=== PATIENT | male | born 1955 | race Caucasian/White ===

== ENCOUNTER 2017-12-07 11:15 | Emergency (ER) | payer MEDICARE, MEDICAID ==
[~2017-12-07] VITALS: Ht 160 cm; Wt 90.9 kg
[2017-12-07 11:54] LABS: GLUCOSE,POINT OF CARE 269 MG/DL (70-110)
[2017-12-07 13:19] VITALS: BP 131/84
== END 2017-12-07 13:34 | disposition home or self-care (01) ==
LOC: EMS 11:16
DX: E11.36 Type 2 diabetes mellitus with diabetic cataract (principal); F12.90 Cannabis use, unspecified, uncomplicated; F17.210 Nicotine dependence, cigarettes, uncomplicated; F15.90 Other stimulant use, unspecified, uncomplicated; E78.00 Pure hypercholesterolemia, unspecified; I10 Essential (primary) hypertension; H40.9 Unspecified glaucoma; Z72.89 Other problems related to lifestyle; Z94.7 Corneal transplant status
CPT/HCPCS: 99283

== ENCOUNTER 2017-12-08 07:13 | Inpatient (IN) | payer OTHER, MEDICAID ==
[~2017-12-08] VITALS: Ht 160 cm; Wt 90.5 kg
[2017-12-08 07:57] LABS: BASOPHILS % (AUTO) 0.2 % (0.0-2.0); EOSINOPHILS % (AUTO) 1.1 % (1.0-6.0); HEMATOCRIT 37.7 % (41-53); HEMOGLOBIN 12.8 g/dL (13.5-17.5); LYMPHOCYTES # (AUTO) 1.6 K/uL (1.0-4.8); LYMPHOCYTES % (AUTO) 16.3 % (22.0-44.0); MEAN CORPUSCULAR HEMOGLOBIN 32.2 pg (26.0-34.0); MEAN CORPUSCULAR HGB CONC 34.1 G/dL (31.0-37.0); MEAN CORPUSCULAR VOLUME 95 fL (80-100); MONOCYTES # (AUTO) 0.9 K/uL (0.1-1.0); NEUTROPHILS % (AUTO) 73.4 % (40.0-70.0); PLATELET COUNT (AUTO) 465 K/uL (150-450); RED BLOOD CELL COUNT(AUTO) 3.99 MIL/uL (4.50-5.90); RED CELL DISTRIBUTION WIDTH 13.8 % (11.5-14.5)
[2017-12-08 08:06] LABS: ANION GAP 9 mmol/L (8-16); CALCIUM, TOTAL 9.2 mg/dL (8.8-10.5); CARBON DIOXIDE 25 mmol/L (22-29); CHLORIDE 95 mmol/L (98-107); CREATININE 1.19 mg/dL (0.60-1.30); GLOMERULAR FILTR. RATE CALC > 60 mL/min (>60); GLUCOSE,RANDOM 217 mg/dL (70-110); POTASSIUM 3.7 mmol/L (3.5-5.1); SODIUM SERUM 129 mmol/L (136-145); UREA NITROGEN, BLOOD 16 mg/dL (7-18)
[2017-12-08 08:12] LABS: ALANINE AMINOTRANSFERASE 30 U/L (12-78); ALBUMIN 3.3 g/dL (3.4-5.0); ALKALINE PHOSPHATASE 108 U/L (46-116); ASPARTATE AMINOTRANSFERASE 25 U/L (15-37); BILIRUBIN,TOTAL 0.4 mg/dL (0.1-1.0); TOTAL PROTEIN, SERUM 7.9 g/dL (6.4-8.2)
[2017-12-08] MEDS ORDERED: ACETAMINOPHEN 325 MG TABLET PO PRN (09:45)
[2017-12-08] MEDS ORDERED: LORazepam 2 MG/ML VIAL IM ONE (09:45)
[2017-12-08] MEDS ORDERED: HALOPERIDOL LACTATE 5 MG/ML VIAL IM ONE (09:45)
[2017-12-08] MEDS ORDERED: IBUPROFEN 400 MG TABLET PO PRN (09:45)
[2017-12-08] MEDS ORDERED: DiphenhydrAMINE HCL 50 MG/ML VIAL IM ONE (09:45)
[2017-12-08 11:09] LABS: GLUCOSE,POINT OF CARE 197 MG/DL (70-110)
[2017-12-08] MEDS: LORazepam 2 MG TABLET PO PRN (20:44)
[2017-12-08] MEDS: ZOLPIDEM TARTRATE 10 MG TABLET PO PRN (20:44)
[2017-12-08] MEDS: HALOPERIDOL 5 MG TABLET PO PRN (20:44)
[2017-12-08 21:28] LABS: APPEARANCE,URINE CLOUDY (CLEAR); BILIRUBIN,URINE NEGATIVE (NEGATIVE); GLUCOSE, URINE (UA) 250 mg/dL (NEGATIVE); KETONES,URINE TRACE mg/dL (NEGATIVE); LEUKOCYTE ESTERASE ,URINE SMALL (NEGATIVE); NITRATE,URINE NEGATIVE (NEGATIVE); OCCULT BLOOD,URINE MODERATE (NEGATIVE); PH,URINE 5.5 (5.0-8.0); PROTEIN,URINE NEGATIVE (NEGATIVE); UROBILINOGEN,URINE 0.2 mg/dL (<=1.0)
[2017-12-08 21:32] LABS: AMPHET/METH SCREEN,URINE NEGATIVE (NEGATIVE); BARBITURATE SCREEN, URINE NEGATIVE (NEGATIVE); BENZODIAZEPINES SCREEN,URINE NEGATIVE (NEGATIVE); CANNABINOID SCREEN,URINE NEGATIVE (NEGATIVE); COCAINE SCREEN,URINE NEGATIVE (NEGATIVE); METHADONE SCREEN, URINE NEGATIVE (NEGATIVE); OPIATE SCREEN,URINE NEGATIVE (NEGATIVE)
[2017-12-08 21:40] LABS: PHENCYCLIDINE SCREEN,URINE NEGATIVE (NEGATIVE)
[2017-12-08 22:12] LABS: BACTERIA,URINE Few /HPF (None Seen); SQUAMOUS EPITHELIAL CELL,UR Few /LPF (None Seen)
[2017-12-09 05:03] VITALS: BP 124/86
[2017-12-09] MEDS ORDERED: PNEUMOCOCCAL VACCINE POLYVALENT 0.5 ML VIAL [PPSV23] IM ONE ×2 (05:15→14:00)
[2017-12-09 07:28] LABS: GLUCOMETER DEV NAME(LOC) BV3N5; GLUCOSE,POINT OF CARE 157 MG/DL (70-110)
[2017-12-09] MEDS ORDERED: ONDANSETRON HCL 4 MG TABLET PO PRN (08:00)
[2017-12-09] MEDS ORDERED: NICOTINE 14 MG/24 HOUR PATCH TD PRN (08:00)
[2017-12-09] MEDS ORDERED: ACETAMINOPHEN 325 MG TABLET PO PRN (08:00)
[2017-12-09] MEDS ORDERED: LOPERAMIDE HCL 2 MG CAPSULE PO PRN (08:00)
[2017-12-09] MEDS ORDERED: PETROLATUM,WHITE 71 GM JELLY TP PRN (08:00)
[2017-12-09] MEDS ORDERED: ALBUTEROL SULFATE HFA 90 MCG/PUFF 8 GM INHALER IH PRN (08:00)
[2017-12-09] MEDS ORDERED: DOCUSATE SODIUM 100 MG CAPSULE PO PRN (08:00)
[2017-12-09] MEDS ORDERED: MAGNESIUM HYDROXIDE SUSPENSION 30 ML UDCUP PO PRN (08:00)
[2017-12-09] MEDS ORDERED: GuaiFENesin/D-METHORPHAN [SUGAR-FREE] 200-20MG/10 ML SYRUP UDCUP PO PRN (08:00)
[2017-12-09] MEDS ORDERED: CloNIDine HCL 0.1 MG TABLET PO PRN (08:00)
[2017-12-09] MEDS ORDERED: MAG HYDROX/AL HYDROX/SIMETH ES 30 ML SUSPENSION UDCUP PO PRN (08:00)
[2017-12-09 08:01] VITALS: BP 117/77
[2017-12-09] MEDS ORDERED: GLUCAGON,HUMAN RECOMBINANT 1 MG VIAL IM PRN (08:30)
[2017-12-09 09:35] LABS: BASOPHILS % (AUTO) 2.2 % (0.0-2.0); EOSINOPHILS % (AUTO) 5.4 % (1.0-6.0); HEMOGLOBIN 14.5 g/dL (13.5-17.5); LYMPHOCYTES # (AUTO) 1.8 K/uL (1.0-4.8); LYMPHOCYTES % (AUTO) 27.7 % (22.0-44.0); MEAN CORPUSCULAR HEMOGLOBIN 32.2 pg (26.0-34.0); MEAN CORPUSCULAR HGB CONC 33.7 G/dL (31.0-37.0); MEAN CORPUSCULAR VOLUME 96 fL (80-100); MONOCYTES # (AUTO) 0.5 K/uL (0.1-1.0); MONOCYTES % (AUTO) 7.8 % (2.0-9.0); NEUTROPHILS # (AUTO) 3.7 K/uL (1.8-7.7); NEUTROPHILS % (AUTO) 56.9 % (40.0-70.0); PLATELET COUNT (AUTO) 487 K/uL (150-450); RED BLOOD CELL COUNT(AUTO) 4.49 MIL/uL (4.50-5.90); RED CELL DISTRIBUTION WIDTH 13.9 % (11.5-14.5)
[2017-12-09 09:43] LABS: HEMOGLOBIN A1C 10.1 % (4.5-6.2)
[2017-12-09 09:58] LABS: ALANINE AMINOTRANSFERASE 33 U/L (12-78); ALBUMIN 3.2 g/dL (3.4-5.0); ALKALINE PHOSPHATASE 114 U/L (46-116); ANION GAP 8 mmol/L (8-16); ASPARTATE AMINOTRANSFERASE 31 U/L (15-37); BILIRUBIN,TOTAL 0.5 mg/dL (0.1-1.0); CALCIUM, TOTAL 9.1 mg/dL (8.8-10.5); CARBON DIOXIDE 26 mmol/L (22-29); CHLORIDE 102 mmol/L (98-107); CHOL/HDL RATIO 4.1 (4.2-7.3); CHOLESTEROL 186 mg/dL (131-200); CREATININE 0.81 mg/dL (0.60-1.30); GLOMERULAR FILTR. RATE CALC > 60 mL/min (>60); GLUCOSE,RANDOM 137 mg/dL (70-110); HDL CHOLESTEROL 45 mg/dL (40-60); LDL CHOL (CALC.) 125 mg/dL (0-130); POTASSIUM 3.9 mmol/L (3.5-5.1); SODIUM SERUM 136 mmol/L (136-145); THYROID STIMULATING HORMONE 4.65 uIU/mL (0.36-3.74); TOTAL PROTEIN, SERUM 8.2 g/dL (6.4-8.2); TRIGLYCERIDES 82 mg/dL (15-150); UREA NITROGEN, BLOOD 11 mg/dL (7-18)
[2017-12-09] MEDS: INSULIN LISPRO 100 UNITS/ML SQ PRN ×3 (12:43→20:33)
[2017-12-09 13:13] LABS: GLUCOMETER DEV NAME(LOC) BV3N5; GLUCOSE,POINT OF CARE 164 MG/DL (70-110)
[2017-12-09 16:00] VITALS: BP 134/72
[2017-12-09 17:25] LABS: GLUCOMETER DEV NAME(LOC) BV3N5; GLUCOSE,POINT OF CARE 144 MG/DL (70-110)
[2017-12-09 20:49] LABS: GLUCOMETER DEV NAME(LOC) BV3N5; GLUCOSE,POINT OF CARE 161 MG/DL (70-110)
[2017-12-10] VITALS (8 sets, daily range): BP systolic 130–162; BP diastolic 75–97
[2017-12-10] MEDS: ZOLPIDEM TARTRATE 10 MG TABLET PO PRN (01:19)
[2017-12-10 06:54] LABS: GLUCOMETER DEV NAME(LOC) BV3N5; GLUCOSE,POINT OF CARE 174 MG/DL (70-110)
[2017-12-10] MEDS: INSULIN LISPRO 100 UNITS/ML SQ PRN ×4 (06:54→21:00)
[2017-12-10 08:16] LABS: BASOPHILS % (AUTO) 1.3 % (0.0-2.0); EOSINOPHILS % (AUTO) 5.5 % (1.0-6.0); HEMATOCRIT 39.2 % (41-53); HEMOGLOBIN 13.2 g/dL (13.5-17.5); LYMPHOCYTES # (AUTO) 1.9 K/uL (1.0-4.8); LYMPHOCYTES % (AUTO) 25.6 % (22.0-44.0); MEAN CORPUSCULAR HEMOGLOBIN 32.1 pg (26.0-34.0); MEAN CORPUSCULAR HGB CONC 33.6 G/dL (31.0-37.0); MEAN CORPUSCULAR VOLUME 96 fL (80-100); MONOCYTES # (AUTO) 0.7 K/uL (0.1-1.0); MONOCYTES % (AUTO) 9.8 % (2.0-9.0); NEUTROPHILS # (AUTO) 4.2 K/uL (1.8-7.7); NEUTROPHILS % (AUTO) 57.8 % (40.0-70.0); PLATELET COUNT (AUTO) 460 K/uL (150-450); RED BLOOD CELL COUNT(AUTO) 4.09 MIL/uL (4.50-5.90); RED CELL DISTRIBUTION WIDTH 13.7 % (11.5-14.5)
[2017-12-10 08:23] LABS: HEMOGLOBIN A1C 9.6 % (4.5-6.2)
[2017-12-10 08:43] LABS: ALANINE AMINOTRANSFERASE 28 U/L (12-78); ALBUMIN 2.9 g/dL (3.4-5.0); ALKALINE PHOSPHATASE 102 U/L (46-116); ANION GAP 12 mmol/L (8-16); ASPARTATE AMINOTRANSFERASE 23 U/L (15-37); BILIRUBIN,TOTAL 0.5 mg/dL (0.1-1.0); CARBON DIOXIDE 22 mmol/L (22-29); CHLORIDE 102 mmol/L (98-107); CHOL/HDL RATIO 4.4 (4.2-7.3); CHOLESTEROL 174 mg/dL (131-200); CREATININE 0.88 mg/dL (0.60-1.30); GLOMERULAR FILTR. RATE CALC > 60 mL/min (>60); GLUCOSE,RANDOM 173 mg/dL (70-110); HDL CHOLESTEROL 40 mg/dL (40-60); LDL CHOL (CALC.) 114 mg/dL (0-130); POTASSIUM 4.1 mmol/L (3.5-5.1); SODIUM SERUM 136 mmol/L (136-145); THYROID STIMULATING HORMONE 4.25 uIU/mL (0.36-3.74); TOTAL PROTEIN, SERUM 6.9 g/dL (6.4-8.2); TRIGLYCERIDES 98 mg/dL (15-150); UREA NITROGEN, BLOOD 11 mg/dL (7-18)
[2017-12-10 11:29] LABS: GLUCOMETER DEV NAME(LOC) BV3N5; GLUCOSE,POINT OF CARE 252 MG/DL (70-110)
[2017-12-10] MEDS ORDERED: ChlordiazePOXIDE HCL 25 MG CAPSULE PO PRN (13:00)
[2017-12-10] MEDS: LORazepam 2 MG TABLET PO PRN (16:34)
[2017-12-10] MEDS: MetFORMIN HCL 500 MG TABLET PO SCH (16:34)
[2017-12-10 16:39] LABS: GLUCOMETER DEV NAME(LOC) BV3N5; GLUCOSE,POINT OF CARE 176 MG/DL (70-110)
[2017-12-10 21:28] LABS: GLUCOMETER DEV NAME(LOC) BV3N5; GLUCOSE,POINT OF CARE 241 MG/DL (70-110)
[2017-12-11] MEDS: LORazepam 2 MG TABLET PO PRN ×2 (02:08→16:50)
[2017-12-11] MEDS: ZOLPIDEM TARTRATE 10 MG TABLET PO PRN ×2 (02:08→20:28)
[2017-12-11] MEDS: HALOPERIDOL 5 MG TABLET PO PRN (02:08)
[2017-12-11 02:16] VITALS: BP 139/87
[2017-12-11 06:13] LABS: GLUCOMETER DEV NAME(LOC) BV3N5; GLUCOSE,POINT OF CARE 186 MG/DL (70-110)
[2017-12-11] MEDS: MetFORMIN HCL 500 MG TABLET PO SCH ×2 (06:28→16:50)
[2017-12-11] MEDS: INSULIN LISPRO 100 UNITS/ML SQ PRN ×4 (06:30→20:29)
[2017-12-11] MEDS ORDERED: ChlordiazePOXIDE HCL 25 MG CAPSULE PO PRN (07:00)
[2017-12-11 08:47] VITALS: BP 139/82
[2017-12-11] MEDS: ChlordiazePOXIDE HCL 25 MG CAPSULE PO SCH ×4 (09:01→20:28)
[2017-12-11 09:02] LABS: ANION GAP 8 mmol/L (8-16); CALCIUM, TOTAL 8.6 mg/dL (8.8-10.5); CARBON DIOXIDE 25 mmol/L (22-29); CHLORIDE 102 mmol/L (98-107); CREATININE 0.83 mg/dL (0.60-1.30); FREE T4 (FREE THYROXINE) 0.95 ng/dL (0.76-1.46); GLOMERULAR FILTR. RATE CALC > 60 mL/min (>60); GLUCOSE,RANDOM 181 mg/dL (70-110); POTASSIUM 3.8 mmol/L (3.5-5.1); SODIUM SERUM 135 mmol/L (136-145); UREA NITROGEN, BLOOD 10 mg/dL (7-18)
[2017-12-11 12:06] VITALS: BP 135/85
[2017-12-11 12:13] LABS: GLUCOMETER DEV NAME(LOC) BV3N5; GLUCOSE,POINT OF CARE 226 MG/DL (70-110)
[2017-12-11] MEDS: RisperiDONE 0.5 MG TABLET PO SCH ×2 (12:13→17:26)
[2017-12-11 16:48] VITALS: BP 158/108
[2017-12-11 16:59] LABS: GLUCOMETER DEV NAME(LOC) BV3N5; GLUCOSE,POINT OF CARE 170 MG/DL (70-110)
[2017-12-11 17:33] VITALS: BP 141/85
[2017-12-11 20:54] LABS: GLUCOMETER DEV NAME(LOC) BV3N5; GLUCOSE,POINT OF CARE 257 MG/DL (70-110)
[2017-12-12 06:16] VITALS: BP 147/89
[2017-12-12 06:35] LABS: GLUCOMETER DEV NAME(LOC) BV3N5; GLUCOSE,POINT OF CARE 164 MG/DL (70-110)
[2017-12-12] MEDS: LEVOTHYROXINE SODIUM 75 MCG TABLET PO SCH (06:39)
[2017-12-12] MEDS: IBUPROFEN 400 MG TABLET PO PRN (06:39)
[2017-12-12] MEDS: MetFORMIN HCL 500 MG TABLET PO SCH ×2 (06:39→16:57)
[2017-12-12] MEDS: INSULIN LISPRO 100 UNITS/ML SQ PRN ×4 (06:44→20:54)
[2017-12-12 06:47] VITALS: BP 147/89
[2017-12-12 08:04] VITALS: BP 145/82
[2017-12-12] MEDS: ChlordiazePOXIDE HCL 25 MG CAPSULE PO SCH ×4 (08:49→20:50)
[2017-12-12] MEDS: RisperiDONE 0.5 MG TABLET PO SCH ×2 (08:49→16:58)
[2017-12-12] MEDS: HALOPERIDOL 5 MG TABLET PO PRN (08:49)
[2017-12-12] MEDS: LORazepam 2 MG TABLET PO PRN (08:49)
[2017-12-12 09:19] VITALS: BP 112/74
[2017-12-12 11:19] LABS: GLUCOMETER DEV NAME(LOC) BV3N5; GLUCOSE,POINT OF CARE 228 MG/DL (70-110)
[2017-12-12 16:04] VITALS: BP 140/89
[2017-12-12 17:19] LABS: GLUCOMETER DEV NAME(LOC) BV3N5; GLUCOSE,POINT OF CARE 143 MG/DL (70-110)
[2017-12-12 21:49] LABS: GLUCOMETER DEV NAME(LOC) BV3N5; GLUCOSE,POINT OF CARE 204 MG/DL (70-110)
[2017-12-13] MEDS: HALOPERIDOL 5 MG TABLET PO PRN ×2 (03:15→08:28)
[2017-12-13] MEDS: LORazepam 2 MG TABLET PO PRN ×2 (03:15→08:28)
[2017-12-13 06:28] LABS: GLUCOMETER DEV NAME(LOC) BV3N5; GLUCOSE,POINT OF CARE 180 MG/DL (70-110)
[2017-12-13 06:51] VITALS: BP 135/78
[2017-12-13] MEDS: LEVOTHYROXINE SODIUM 75 MCG TABLET PO SCH (06:56)
[2017-12-13] MEDS: MetFORMIN HCL 500 MG TABLET PO SCH ×2 (06:57→16:49)
[2017-12-13] MEDS ORDERED: ChlordiazePOXIDE HCL 10 MG CAPSULE PO PRN (07:00)
[2017-12-13] MEDS: INSULIN LISPRO 100 UNITS/ML SQ PRN ×4 (07:03→20:50)
[2017-12-13 08:00] VITALS: BP_SYST 131; BP_SYST 142; BP_DIAS 80; BP_DIAS 87
[2017-12-13 08:24] VITALS: BP 131/87
[2017-12-13] MEDS: RisperiDONE 0.5 MG TABLET PO SCH ×2 (08:27→16:49)
[2017-12-13] MEDS: ChlordiazePOXIDE HCL 10 MG CAPSULE PO SCH ×4 (08:27→20:49)
[2017-12-13 11:18] LABS: GLUCOMETER DEV NAME(LOC) BV3N5; GLUCOSE,POINT OF CARE 155 MG/DL (70-110)
[2017-12-13 16:00] VITALS: BP 155/89
[2017-12-13] MEDS: AmLODIPine BESYLATE 10 MG TABLET PO SCH (16:49)
[2017-12-13 17:19] LABS: GLUCOMETER DEV NAME(LOC) BV3N5; GLUCOSE,POINT OF CARE 236 MG/DL (70-110)
[2017-12-13 21:19] LABS: GLUCOMETER DEV NAME(LOC) BV3N5; GLUCOSE,POINT OF CARE 178 MG/DL (70-110)
[2017-12-14 06:25] VITALS: BP 142/93
[2017-12-14 06:29] LABS: GLUCOMETER DEV NAME(LOC) BV3N5; GLUCOSE,POINT OF CARE 177 MG/DL (70-110)
[2017-12-14] MEDS: LEVOTHYROXINE SODIUM 75 MCG TABLET PO SCH (06:29)
[2017-12-14] MEDS: MetFORMIN HCL 500 MG TABLET PO SCH ×2 (06:29→17:00)
[2017-12-14] MEDS: INSULIN LISPRO 100 UNITS/ML SQ PRN (06:38)
[2017-12-14] MEDS ORDERED: ChlordiazePOXIDE HCL 10 MG CAPSULE PO PRN (07:00)
[2017-12-14 08:00] VITALS: BP 117/78
[2017-12-14 08:02] VITALS: BP 117/78
[2017-12-14] MEDS: RisperiDONE 0.5 MG TABLET PO SCH ×2 (08:16→17:00)
[2017-12-14] MEDS: AmLODIPine BESYLATE 10 MG TABLET PO SCH (08:17)
[2017-12-14 11:44] LABS: GLUCOMETER DEV NAME(LOC) BV3N5; GLUCOSE,POINT OF CARE 140 MG/DL (70-110)
[2017-12-14 18:50] VITALS: BP 105/67
[2017-12-15 04:09] VITALS: BP 146/94
[2017-12-15 04:13] VITALS: BP 146/94
[2017-12-15] MEDS: IBUPROFEN 400 MG TABLET PO PRN (04:17)
[2017-12-15] MEDS: LORazepam 2 MG TABLET PO PRN (04:42)
[2017-12-15] MEDS: INSULIN LISPRO 100 UNITS/ML SQ PRN ×2 (06:22→11:41)
[2017-12-15] MEDS: LEVOTHYROXINE SODIUM 75 MCG TABLET PO SCH (06:43)
[2017-12-15] MEDS: MetFORMIN HCL 500 MG TABLET PO SCH ×2 (06:43→17:00)
[2017-12-15 08:01] VITALS: BP 132/79
[2017-12-15] MEDS: AmLODIPine BESYLATE 10 MG TABLET PO SCH (08:12)
[2017-12-15] MEDS: RisperiDONE 0.5 MG TABLET PO SCH ×2 (08:13→17:00)
[2017-12-15 08:46] LABS: BASOPHILS % (AUTO) 1.2 % (0.0-2.0); EOSINOPHILS % (AUTO) 9.2 % (1.0-6.0); HEMATOCRIT 40.8 % (41-53); HEMOGLOBIN 13.9 g/dL (13.5-17.5); LYMPHOCYTES # (AUTO) 2.3 K/uL (1.0-4.8); MEAN CORPUSCULAR HGB CONC 34.2 G/dL (31.0-37.0); MEAN CORPUSCULAR VOLUME 94 fL (80-100); MONOCYTES # (AUTO) 0.8 K/uL (0.1-1.0); MONOCYTES % (AUTO) 8.4 % (2.0-9.0); NEUTROPHILS # (AUTO) 5.5 K/uL (1.8-7.7); NEUTROPHILS % (AUTO) 57.2 % (40.0-70.0); PLATELET COUNT (AUTO) 486 K/uL (150-450); RED BLOOD CELL COUNT(AUTO) 4.35 MIL/uL (4.50-5.90); RED CELL DISTRIBUTION WIDTH 13.9 % (11.5-14.5)
[2017-12-15 08:54] LABS: AMPHET/METH SCREEN,URINE NEGATIVE (NEGATIVE); BARBITURATE SCREEN, URINE NEGATIVE (NEGATIVE); BENZODIAZEPINES SCREEN,URINE POSITIVE (NEGATIVE); CANNABINOID SCREEN,URINE NEGATIVE (NEGATIVE); COCAINE SCREEN,URINE NEGATIVE (NEGATIVE); METHADONE SCREEN, URINE NEGATIVE (NEGATIVE); OPIATE SCREEN,URINE NEGATIVE (NEGATIVE)
[2017-12-15] MEDS ORDERED: ASPIRIN 81 MG CHEWABLE TABLET PO SCH (09:00)
[2017-12-15 09:04] LABS: PHENCYCLIDINE SCREEN,URINE NEGATIVE (NEGATIVE)
[2017-12-15 09:31] LABS: APPEARANCE,URINE CLEAR (CLEAR); BILIRUBIN,URINE NEGATIVE (NEGATIVE); GLUCOSE, URINE (UA) 100 mg/dL (NEGATIVE); KETONES,URINE TRACE mg/dL (NEGATIVE); LEUKOCYTE ESTERASE ,URINE SMALL (NEGATIVE); NITRATE,URINE NEGATIVE (NEGATIVE); OCCULT BLOOD,URINE MODERATE (NEGATIVE); PH,URINE 6.5 (5.0-8.0); PROTEIN,URINE TRACE (NEGATIVE)
[2017-12-15 09:31] LABS: ALANINE AMINOTRANSFERASE 25 U/L (12-78); ALBUMIN 3.3 g/dL (3.4-5.0); ALKALINE PHOSPHATASE 118 U/L (46-116); ANION GAP 14 mmol/L (8-16); ASPARTATE AMINOTRANSFERASE 19 U/L (15-37); BILIRUBIN,TOTAL 0.3 mg/dL (0.1-1.0); CALCIUM, TOTAL 9.9 mg/dL (8.8-10.5); CARBON DIOXIDE 22 mmol/L (22-29); CHLORIDE 103 mmol/L (98-107); CREATININE 0.88 mg/dL (0.60-1.30); GLOMERULAR FILTR. RATE CALC > 60 mL/min (>60); GLUCOSE,RANDOM 187 mg/dL (70-110); POTASSIUM 4.4 mmol/L (3.5-5.1); SODIUM SERUM 139 mmol/L (136-145); UREA NITROGEN, BLOOD 14 mg/dL (7-18)
[2017-12-15 09:56] LABS: BACTERIA,URINE None Seen /HPF (None Seen); RBC,URINE 0-2 /HPF (0-2); SQUAMOUS EPITHELIAL CELL,UR Few /LPF (None Seen)
[2017-12-15] MEDS: CIPROFLOXACIN HCL 500 MG TABLET PO SCH ×2 (10:34→17:00)
[2017-12-15 11:44] LABS: GLUCOMETER DEV NAME(LOC) BV3N5; GLUCOSE,POINT OF CARE 159 MG/DL (70-110)
[2017-12-15 16:00] VITALS: BP 131/79
[2017-12-15 16:04] LABS: GLUCOSE,POINT OF CARE 228 MG/DL (70-110)
[2017-12-16] MEDS ORDERED: TAMSULOSIN HCL 0.4 MG CAPSULE PO SCH (09:00)
== END 2017-12-15 15:23 | disposition short-term general hospital (02) | DRG 885 ==
LOC: EMS 07:15 → B3A 12-09 00:40
PROVIDERS: ADMIT Psychiatry & Neurology Psychiatry; ATTEND Psychiatry & Neurology Psychiatry
DX: F20.9 Schizophrenia, unspecified (principal); E87.1 Hypo-osmolality and hyponatremia; I10 Essential (primary) hypertension; E11.65 Type 2 diabetes mellitus with hyperglycemia; E03.9 Hypothyroidism, unspecified; E78.5 Hyperlipidemia, unspecified; F17.200 Nicotine dependence, unspecified, uncomplicated; F10.10 Alcohol abuse, uncomplicated; E78.00 Pure hypercholesterolemia, unspecified; F15.90 Other stimulant use, unspecified, uncomplicated; H40.9 Unspecified glaucoma; H54.61 Unqualified visual loss, right eye, normal vision left eye; R45.87 Impulsiveness; Z28.21 Immunization not carried out because of patient refusal
CPT/HCPCS: 80307; 83036; 84439; 84443; 87086; 90471; 96372; 99285; G0480; J1200; J1630; J2060

== ENCOUNTER 2017-12-15 15:46 | Inpatient (IN) | payer MEDICARE, MEDICAID ==
[~2017-12-15] VITALS: Ht 160 cm; Wt 74.2 kg
[2017-12-15 16:31] LABS: BASOPHILS % (AUTO) 1.1 % (0.0-2.0); EOSINOPHILS % (AUTO) 7.4 % (1.0-6.0); HEMATOCRIT 43.9 % (41-53); HEMOGLOBIN 14.9 g/dL (13.5-17.5); LYMPHOCYTES # (AUTO) 1.8 K/uL (1.0-4.8); LYMPHOCYTES % (AUTO) 18.5 % (22.0-44.0); MEAN CORPUSCULAR HEMOGLOBIN 31.9 pg (26.0-34.0); MEAN CORPUSCULAR VOLUME 94 fL (80-100); MONOCYTES # (AUTO) 0.8 K/uL (0.1-1.0); MONOCYTES % (AUTO) 8.3 % (2.0-9.0); NEUTROPHILS # (AUTO) 6.2 K/uL (1.8-7.7); NEUTROPHILS % (AUTO) 64.7 % (40.0-70.0); PLATELET COUNT (AUTO) 501 K/uL (150-450); RED BLOOD CELL COUNT(AUTO) 4.68 MIL/uL (4.50-5.90); RED CELL DISTRIBUTION WIDTH 13.7 % (11.5-14.5)
[2017-12-15 16:44] LABS: INR 0.9 (0.9-1.1); PROTHROMBIN TIME 9.6 SEC (9.4-11.6)
[2017-12-15 16:49] LABS: ANION GAP 13 mmol/L (8-16); CALCIUM, TOTAL 10.3 mg/dL (8.8-10.5); CARBON DIOXIDE 25 mmol/L (22-29); CHLORIDE 100 mmol/L (98-107); CREATININE 1.06 mg/dL (0.60-1.30); GLOMERULAR FILTR. RATE CALC > 60 mL/min (>60); GLUCOSE,RANDOM 213 mg/dL (70-110); POTASSIUM 4.1 mmol/L (3.5-5.1); SODIUM SERUM 138 mmol/L (136-145); UREA NITROGEN, BLOOD 17 mg/dL (7-18)
[2017-12-15 16:52] LABS: ALANINE AMINOTRANSFERASE 24 U/L (12-78); ALBUMIN 3.5 g/dL (3.4-5.0); ALKALINE PHOSPHATASE 135 U/L (46-116); ASPARTATE AMINOTRANSFERASE 20 U/L (15-37); BILIRUBIN,TOTAL 0.2 mg/dL (0.1-1.0); CREATINE KINASE, TOTAL ONLY 46 U/L (39-308); TOTAL PROTEIN, SERUM 9.8 g/dL (6.4-8.2)
[2017-12-15 16:53] LABS: TROPONIN I < 0.02 ng/mL (0.00-0.05)
[2017-12-15 17:10] LABS: AMMONIA < 10 umol/L (11-32)
[2017-12-15 19:49] LABS: APPEARANCE,URINE CLEAR (CLEAR); BILIRUBIN,URINE NEGATIVE (NEGATIVE); GLUCOSE, URINE (UA) 100 mg/dL (NEGATIVE); KETONES,URINE TRACE mg/dL (NEGATIVE); LEUKOCYTE ESTERASE ,URINE TRACE (NEGATIVE); NITRATE,URINE NEGATIVE (NEGATIVE); OCCULT BLOOD,URINE TRACE (NEGATIVE); PH,URINE 5.5 (5.0-8.0); PROTEIN,URINE TRACE (NEGATIVE); UROBILINOGEN,URINE 0.2 mg/dL (<=1.0)
[2017-12-15 19:54] LABS: AMPHET/METH SCREEN,URINE NEGATIVE (NEGATIVE); BARBITURATE SCREEN, URINE NEGATIVE (NEGATIVE); BENZODIAZEPINES SCREEN,URINE POSITIVE (NEGATIVE); CANNABINOID SCREEN,URINE NEGATIVE (NEGATIVE); COCAINE SCREEN,URINE NEGATIVE (NEGATIVE); METHADONE SCREEN, URINE NEGATIVE (NEGATIVE); OPIATE SCREEN,URINE NEGATIVE (NEGATIVE); PHENCYCLIDINE SCREEN,URINE NEGATIVE (NEGATIVE)
[2017-12-15 20:43] LABS: RBC,URINE 0-2 /HPF (0-2)
[2017-12-15 20:44] LABS: BACTERIA,URINE Moderate /HPF (None Seen)
[2017-12-15 20:45] LABS: SQUAMOUS EPITHELIAL CELL,UR Moderate /LPF (None Seen)
[2017-12-16] VITALS (7 sets, daily range): BP systolic 118–149; BP diastolic 78–95
[2017-12-16] MEDS ORDERED: 0.9% SODIUM CHLORIDE 10 ML SYRINGE IVP PRN (00:15)
[2017-12-16] MEDS ORDERED: ACETAMINOPHEN 325 MG TABLET PO PRN ×2 (00:15→08:15)
[2017-12-16] MEDS ORDERED: SODIUM CHLORIDE 0.9% 1,000 ML IV ONE (00:15)
[2017-12-16 07:43] LABS: GLUCOMETER DEV NAME(LOC) PV 4E2; GLUCOSE,POINT OF CARE 163 MG/DL (70-110)
[2017-12-16] MEDS ORDERED: MAGNESIUM HYDROXIDE SUSPENSION 30 ML UDCUP PO PRN (08:15)
[2017-12-16] MEDS ORDERED: DEXTROSE 50%-WATER 25 GM/50 ML SYRINGE IVP PRN (08:15)
[2017-12-16] MEDS ORDERED: CefTRIAXone SODIUM 1 GM in DEXTROSE 5%-WATER 10 ML IV ONE (08:30)
[2017-12-16] MEDS: PANTOPRAZOLE SODIUM 40 MG DR TABLET PO SCH (09:59)
[2017-12-16] MEDS: DOCUSATE SODIUM 100 MG CAPSULE PO SCH ×2 (09:59→20:24)
[2017-12-16] MEDS: ASPIRIN 81 MG CHEWABLE TABLET PO SCH (09:59)
[2017-12-16] MEDS: MULTIVITAMINS WITH MINERALS, THERAPEUTIC TABLET PO SCH (09:59)
[2017-12-16] MEDS: LISINOPRIL 5 MG TABLET PO SCH (09:59)
[2017-12-16] MEDS: HEPARIN SODIUM,PORCINE 5,000 UNITS/ML VIAL SQ SCH ×2 (10:00→20:25)
[2017-12-16] MEDS: INSULIN LISPRO 100 UNITS/ML SQ PRN ×3 (12:38→20:32)
[2017-12-16 17:39] LABS: GLUCOMETER DEV NAME(LOC) PV 4E2; GLUCOSE,POINT OF CARE 172 MG/DL (70-110)
[2017-12-16] MEDS: ATORVASTATIN CALCIUM 20 MG TABLET PO SCH (20:24)
[2017-12-16] MEDS: RisperiDONE 0.5 MG TABLET PO SCH (20:24)
[2017-12-16 23:49] LABS: GLUCOMETER DEV NAME(LOC) 6N 1E; GLUCOSE,POINT OF CARE 155 MG/DL (70-110)
[2017-12-17 04:32] VITALS: BP 133/89
[2017-12-17] MEDS: INSULIN LISPRO 100 UNITS/ML SQ PRN ×3 (05:58→17:30)
[2017-12-17] MEDS: DOCUSATE SODIUM 100 MG CAPSULE PO SCH ×2 (08:40→20:33)
[2017-12-17] MEDS: ASPIRIN 81 MG CHEWABLE TABLET PO SCH (08:41)
[2017-12-17] MEDS: PANTOPRAZOLE SODIUM 40 MG DR TABLET PO SCH (08:41)
[2017-12-17] MEDS: MULTIVITAMINS WITH MINERALS, THERAPEUTIC TABLET PO SCH (08:41)
[2017-12-17] MEDS: HEPARIN SODIUM,PORCINE 5,000 UNITS/ML VIAL SQ SCH ×2 (08:41→20:33)
[2017-12-17] MEDS: LISINOPRIL 5 MG TABLET PO SCH (08:41)
[2017-12-17 09:52] LABS: GLUCOMETER DEV NAME(LOC) 6N 2D; GLUCOSE,POINT OF CARE 181 MG/DL (70-110)
[2017-12-17 12:28] LABS: GLUCOMETER DEV NAME(LOC) PV 4E2; GLUCOSE,POINT OF CARE 128 MG/DL (70-110)
[2017-12-17 14:25] VITALS: BP 120/78
[2017-12-17 15:54] VITALS: BP 124/76
[2017-12-17 20:06] VITALS: BP 117/76
[2017-12-17] MEDS: ATORVASTATIN CALCIUM 20 MG TABLET PO SCH (20:32)
[2017-12-17] MEDS: RisperiDONE 0.5 MG TABLET PO SCH (20:32)
[2017-12-17] MEDS: TAMSULOSIN HCL 0.4 MG CAPSULE PO SCH (20:33)
[2017-12-18 05:42] VITALS: BP 126/76
[2017-12-18 06:19] LABS: GLUCOMETER DEV NAME(LOC) 6N 1E; GLUCOSE,POINT OF CARE 135 MG/DL (70-110)
[2017-12-18 07:45] VITALS: BP 126/80
[2017-12-18] MEDS: DOCUSATE SODIUM 100 MG CAPSULE PO SCH ×2 (08:24→19:54)
[2017-12-18] MEDS: LISINOPRIL 5 MG TABLET PO SCH (08:24)
[2017-12-18] MEDS: PANTOPRAZOLE SODIUM 40 MG DR TABLET PO SCH (08:24)
[2017-12-18] MEDS: HEPARIN SODIUM,PORCINE 5,000 UNITS/ML VIAL SQ SCH ×2 (08:25→19:54)
[2017-12-18] MEDS: ASPIRIN 81 MG CHEWABLE TABLET PO SCH (08:25)
[2017-12-18] MEDS: TAMSULOSIN HCL 0.4 MG CAPSULE PO SCH (08:25)
[2017-12-18] MEDS: MULTIVITAMINS WITH MINERALS, THERAPEUTIC TABLET PO SCH (08:30)
[2017-12-18] MEDS: INSULIN LISPRO 100 UNITS/ML SQ PRN ×3 (11:06→20:11)
[2017-12-18 11:27] VITALS: BP 120/76
[2017-12-18 11:38] LABS: GLUCOMETER DEV NAME(LOC) 6N 1E; GLUCOSE,POINT OF CARE 231 MG/DL (70-110)
[2017-12-18 19:44] LABS: GLUCOMETER DEV NAME(LOC) 6N 1E; GLUCOSE,POINT OF CARE 195 MG/DL (70-110)
[2017-12-18] MEDS: ATORVASTATIN CALCIUM 20 MG TABLET PO SCH (19:54)
[2017-12-18] MEDS: RisperiDONE 0.5 MG TABLET PO SCH (19:54)
[2017-12-18 20:16] VITALS: BP 133/86
[2017-12-18 20:19] LABS: GLUCOMETER DEV NAME(LOC) 6N 1E; GLUCOSE,POINT OF CARE 160 MG/DL (70-110)
[2017-12-19 00:08] VITALS: BP 135/74
[2017-12-19 04:00] VITALS: BP 136/86
[2017-12-19] MEDS: INSULIN LISPRO 100 UNITS/ML SQ PRN ×4 (05:34→22:29)
[2017-12-19 06:19] LABS: GLUCOMETER DEV NAME(LOC) 6N 1E; GLUCOSE,POINT OF CARE 167 MG/DL (70-110)
[2017-12-19 08:03] VITALS: BP 151/84
[2017-12-19] MEDS: MULTIVITAMINS WITH MINERALS, THERAPEUTIC TABLET PO SCH (08:37)
[2017-12-19] MEDS: DOCUSATE SODIUM 100 MG CAPSULE PO SCH ×2 (08:37→20:59)
[2017-12-19] MEDS: LISINOPRIL 5 MG TABLET PO SCH (08:37)
[2017-12-19] MEDS: ASPIRIN 81 MG CHEWABLE TABLET PO SCH (08:37)
[2017-12-19] MEDS: TAMSULOSIN HCL 0.4 MG CAPSULE PO SCH ×2 (08:38→20:58)
[2017-12-19] MEDS: PANTOPRAZOLE SODIUM 40 MG DR TABLET PO SCH (08:38)
[2017-12-19] MEDS: HEPARIN SODIUM,PORCINE 5,000 UNITS/ML VIAL SQ SCH ×2 (08:38→20:59)
[2017-12-19 12:17] VITALS: BP 134/76
[2017-12-19 14:59] LABS: GLUCOMETER DEV NAME(LOC) 6N 2D; GLUCOSE,POINT OF CARE 207 MG/DL (70-110)
[2017-12-19 15:10] VITALS: BP 135/77
[2017-12-19 20:08] VITALS: BP 136/83
[2017-12-19 20:14] LABS: GLUCOMETER DEV NAME(LOC) 6N 2D; GLUCOSE,POINT OF CARE 199 MG/DL (70-110)
[2017-12-19] MEDS: ATORVASTATIN CALCIUM 20 MG TABLET PO SCH (20:58)
[2017-12-19] MEDS: RisperiDONE 0.5 MG TABLET PO SCH (20:59)
[2017-12-19 23:24] LABS: GLUCOMETER DEV NAME(LOC) 6N 1E; GLUCOSE,POINT OF CARE 196 MG/DL (70-110)
[2017-12-20] VITALS (7 sets, daily range): BP systolic 110–152; BP diastolic 58–110
[2017-12-20] MEDS: INSULIN LISPRO 100 UNITS/ML SQ PRN ×2 (05:45→12:52)
[2017-12-20 06:29] LABS: GLUCOMETER DEV NAME(LOC) 6N 1E; GLUCOSE,POINT OF CARE 162 MG/DL (70-110)
[2017-12-20] MEDS: TAMSULOSIN HCL 0.4 MG CAPSULE PO SCH ×3 (08:39→21:00)
[2017-12-20] MEDS: MULTIVITAMINS WITH MINERALS, THERAPEUTIC TABLET PO SCH (08:39)
[2017-12-20] MEDS: PANTOPRAZOLE SODIUM 40 MG DR TABLET PO SCH (08:39)
[2017-12-20] MEDS: DOCUSATE SODIUM 100 MG CAPSULE PO SCH ×3 (08:39→21:00)
[2017-12-20] MEDS: ASPIRIN 81 MG CHEWABLE TABLET PO SCH (08:40)
[2017-12-20] MEDS: HEPARIN SODIUM,PORCINE 5,000 UNITS/ML VIAL SQ SCH ×3 (08:40→21:00)
[2017-12-20] MEDS: LISINOPRIL 5 MG TABLET PO SCH (08:40)
[2017-12-20 15:19] LABS: GLUCOMETER DEV NAME(LOC) 6N 1E; GLUCOSE,POINT OF CARE 180 MG/DL (70-110)
[2017-12-20 15:19] LABS: GLUCOMETER DEV NAME(LOC) 6N 1E; GLUCOSE,POINT OF CARE 138 MG/DL (70-110)
[2017-12-20 15:19] LABS: GLUCOMETER DEV NAME(LOC) 6N 1E; GLUCOSE,POINT OF CARE 127 MG/DL (70-110)
[2017-12-20 17:54] LABS: GLUCOMETER DEV NAME(LOC) 6N 1E; GLUCOSE,POINT OF CARE 237 MG/DL (70-110)
[2017-12-20 20:09] LABS: GLUCOMETER DEV NAME(LOC) 6N 1E; GLUCOSE,POINT OF CARE 117 MG/DL (70-110)
[2017-12-20] MEDS: ATORVASTATIN CALCIUM 20 MG TABLET PO SCH (20:25)
[2017-12-20] MEDS ORDERED: SODIUM CHLORIDE 0.9% 1,000 ML IV ONE (21:00)
[2017-12-20] MEDS: RisperiDONE 0.5 MG TABLET PO SCH (21:00)
[2017-12-20 21:18] LABS: BASOPHILS % (AUTO) 1.2 % (0.0-2.0); EOSINOPHILS % (AUTO) 4.9 % (1.0-6.0); HEMATOCRIT 37.6 % (41-53); HEMOGLOBIN 12.8 g/dL (13.5-17.5); LYMPHOCYTES # (AUTO) 2.2 K/uL (1.0-4.8); LYMPHOCYTES % (AUTO) 21.2 % (22.0-44.0); MEAN CORPUSCULAR HEMOGLOBIN 31.5 pg (26.0-34.0); MEAN CORPUSCULAR VOLUME 93 fL (80-100); MONOCYTES # (AUTO) 0.9 K/uL (0.1-1.0); MONOCYTES % (AUTO) 8.6 % (2.0-9.0); NEUTROPHILS # (AUTO) 6.7 K/uL (1.8-7.7); NEUTROPHILS % (AUTO) 64.1 % (40.0-70.0); PLATELET COUNT (AUTO) 427 K/uL (150-450); RED BLOOD CELL COUNT(AUTO) 4.06 MIL/uL (4.50-5.90); RED CELL DISTRIBUTION WIDTH 13.4 % (11.5-14.5)
[2017-12-20 21:32] LABS: ANION GAP 11 mmol/L (8-16); CALCIUM, TOTAL 9.4 mg/dL (8.8-10.5); CARBON DIOXIDE 24 mmol/L (22-29); CHLORIDE 103 mmol/L (98-107); CREATININE 1.15 mg/dL (0.60-1.30); GLOMERULAR FILTR. RATE CALC > 60 mL/min (>60); GLUCOSE,RANDOM 204 mg/dL (70-110); POTASSIUM 3.9 mmol/L (3.5-5.1); SODIUM SERUM 138 mmol/L (136-145); UREA NITROGEN, BLOOD 14 mg/dL (7-18)
[2017-12-20 21:38] LABS: ALANINE AMINOTRANSFERASE 25 U/L (12-78); ALKALINE PHOSPHATASE 101 U/L (46-116); ASPARTATE AMINOTRANSFERASE 19 U/L (15-37); BILIRUBIN,TOTAL 0.3 mg/dL (0.1-1.0); TOTAL PROTEIN, SERUM 7.9 g/dL (6.4-8.2)
[2017-12-20 21:51] LABS: B-TYPE NATRIURETIC PEPTIDE 51 pg/mL (0-100)
[2017-12-20 22:23] LABS: APPEARANCE,URINE CLEAR (CLEAR); BILIRUBIN,URINE NEGATIVE (NEGATIVE); GLUCOSE, URINE (UA) NEGATIVE (NEGATIVE); KETONES,URINE NEGATIVE (NEGATIVE); LEUKOCYTE ESTERASE ,URINE NEGATIVE (NEGATIVE); NITRATE,URINE NEGATIVE (NEGATIVE); OCCULT BLOOD,URINE TRACE (NEGATIVE); PH,URINE 6.5 (5.0-8.0); PROTEIN,URINE NEGATIVE (NEGATIVE); UROBILINOGEN,URINE 0.2 mg/dL (<=1.0)
[2017-12-20 22:55] LABS: BACTERIA,URINE Few /HPF (None Seen); RBC,URINE 0-2 /HPF (0-2)
[2017-12-20 22:56] LABS: SQUAMOUS EPITHELIAL CELL,UR Few /LPF (None Seen)
[2017-12-20 23:33] LABS: GLUCOMETER DEV NAME(LOC) 6N 1E; GLUCOSE,POINT OF CARE 223 MG/DL (70-110)
[2017-12-20 23:34] LABS: GLUCOMETER DEV NAME(LOC) 6N 1E; GLUCOSE,POINT OF CARE 204 MG/DL (70-110)
[2017-12-21 05:02] VITALS: BP 152/96
[2017-12-21 06:36] LABS: GLUCOMETER DEV NAME(LOC) 6N 1E; GLUCOSE,POINT OF CARE 131 MG/DL (70-110)
[2017-12-21 08:00] VITALS: BP 150/92
[2017-12-21] MEDS: LISINOPRIL 5 MG TABLET PO SCH (08:50)
[2017-12-21] MEDS: TAMSULOSIN HCL 0.4 MG CAPSULE PO SCH ×2 (08:50→21:17)
[2017-12-21] MEDS: ASPIRIN 81 MG CHEWABLE TABLET PO SCH (08:50)
[2017-12-21] MEDS: HEPARIN SODIUM,PORCINE 5,000 UNITS/ML VIAL SQ SCH ×2 (08:50→21:18)
[2017-12-21] MEDS: PANTOPRAZOLE SODIUM 40 MG DR TABLET PO SCH (08:50)
[2017-12-21] MEDS: DOCUSATE SODIUM 100 MG CAPSULE PO SCH ×2 (08:50→21:17)
[2017-12-21] MEDS: MULTIVITAMINS WITH MINERALS, THERAPEUTIC TABLET PO SCH (08:50)
[2017-12-21 11:07] VITALS: BP 132/77
[2017-12-21] MEDS: INSULIN LISPRO 100 UNITS/ML SQ PRN ×3 (13:07→21:25)
[2017-12-21 14:14] LABS: GLUCOMETER DEV NAME(LOC) 6N 2D; GLUCOSE,POINT OF CARE 174 MG/DL (70-110)
[2017-12-21 16:35] VITALS: BP 144/91
[2017-12-21 19:30] VITALS: BP 136/80
[2017-12-21 20:04] LABS: GLUCOMETER DEV NAME(LOC) 6N 2D; GLUCOSE,POINT OF CARE 187 MG/DL (70-110)
[2017-12-21] MEDS: RisperiDONE 0.5 MG TABLET PO SCH (21:17)
[2017-12-21] MEDS: ATORVASTATIN CALCIUM 20 MG TABLET PO SCH (21:17)
[2017-12-21 22:53] LABS: GLUCOMETER DEV NAME(LOC) 6N 1E; GLUCOSE,POINT OF CARE 141 MG/DL (70-110)
[2017-12-21 23:36] VITALS: BP 132/78
[2017-12-22] MEDS: INSULIN LISPRO 100 UNITS/ML SQ PRN ×4 (06:24→21:48)
[2017-12-22 07:14] LABS: GLUCOMETER DEV NAME(LOC) 6N 1E; GLUCOSE,POINT OF CARE 174 MG/DL (70-110)
[2017-12-22 07:32] VITALS: BP 102/69
[2017-12-22] MEDS: MULTIVITAMINS WITH MINERALS, THERAPEUTIC TABLET PO SCH (08:44)
[2017-12-22] MEDS: DOCUSATE SODIUM 100 MG CAPSULE PO SCH ×2 (08:44→20:35)
[2017-12-22] MEDS: ASPIRIN 81 MG CHEWABLE TABLET PO SCH (08:44)
[2017-12-22] MEDS: TAMSULOSIN HCL 0.4 MG CAPSULE PO SCH ×2 (08:44→20:35)
[2017-12-22] MEDS: HEPARIN SODIUM,PORCINE 5,000 UNITS/ML VIAL SQ SCH ×2 (08:44→20:35)
[2017-12-22] MEDS: PANTOPRAZOLE SODIUM 40 MG DR TABLET PO SCH (08:44)
[2017-12-22] MEDS: LISINOPRIL 5 MG TABLET PO SCH (08:44)
[2017-12-22] MEDS ORDERED: TAMSULOSIN HCL 0.4 MG CAPSULE PO SCH (10:30)
[2017-12-22 10:45] VITALS: BP 106/70
[2017-12-22] MEDS ORDERED: SODIUM CHLORIDE 0.9% 100 ML ONE (12:47)
[2017-12-22] MEDS ORDERED: IOVERSOL 350 MG/ML 100 ML VIAL ONE (12:47)
[2017-12-22 14:22] LABS: GLUCOMETER DEV NAME(LOC) 6N 1E; GLUCOSE,POINT OF CARE 192 MG/DL (70-110)
[2017-12-22 15:30] VITALS: BP 110/68
[2017-12-22] MEDS: BETHANECHOL CHLORIDE 25 MG TABLET PO SCH ×2 (16:57→20:35)
[2017-12-22 18:39] LABS: GLUCOMETER DEV NAME(LOC) 6N 1E; GLUCOSE,POINT OF CARE 225 MG/DL (70-110)
[2017-12-22 19:32] VITALS: BP 139/89
[2017-12-22] MEDS: ATORVASTATIN CALCIUM 20 MG TABLET PO SCH (20:35)
[2017-12-22] MEDS: RisperiDONE 0.5 MG TABLET PO SCH (20:35)
[2017-12-22 23:45] VITALS: BP 135/81
[2017-12-23 04:45] VITALS: BP 125/80
[2017-12-23 04:54] LABS: GLUCOMETER DEV NAME(LOC) 6N 1E; GLUCOSE,POINT OF CARE 231 MG/DL (70-110)
[2017-12-23 07:23] VITALS: BP 115/79
[2017-12-23] MEDS: BETHANECHOL CHLORIDE 25 MG TABLET PO SCH ×3 (08:59→19:54)
[2017-12-23] MEDS: PANTOPRAZOLE SODIUM 40 MG DR TABLET PO SCH (08:59)
[2017-12-23] MEDS: MULTIVITAMINS WITH MINERALS, THERAPEUTIC TABLET PO SCH (08:59)
[2017-12-23] MEDS: DOCUSATE SODIUM 100 MG CAPSULE PO SCH ×2 (08:59→19:54)
[2017-12-23] MEDS: LISINOPRIL 5 MG TABLET PO SCH (08:59)
[2017-12-23] MEDS: TAMSULOSIN HCL 0.4 MG CAPSULE PO SCH ×2 (08:59→19:54)
[2017-12-23] MEDS: ASPIRIN 81 MG CHEWABLE TABLET PO SCH (08:59)
[2017-12-23] MEDS: HEPARIN SODIUM,PORCINE 5,000 UNITS/ML VIAL SQ SCH ×2 (09:00→19:54)
[2017-12-23 11:33] VITALS: BP 145/88
[2017-12-23] MEDS: INSULIN LISPRO 100 UNITS/ML SQ PRN ×3 (11:55→19:55)
[2017-12-23 15:09] VITALS: BP 132/91
[2017-12-23 15:49] LABS: GLUCOMETER DEV NAME(LOC) 6N 2D; GLUCOSE,POINT OF CARE 135 MG/DL (70-110)
[2017-12-23 15:49] LABS: GLUCOMETER DEV NAME(LOC) 6N 2D; GLUCOSE,POINT OF CARE 218 MG/DL (70-110)
[2017-12-23 17:54] LABS: GLUCOMETER DEV NAME(LOC) 6N 2D; GLUCOSE,POINT OF CARE 229 MG/DL (70-110)
[2017-12-23 19:13] VITALS: BP 124/76
[2017-12-23] MEDS: RisperiDONE 0.5 MG TABLET PO SCH (19:53)
[2017-12-23] MEDS: ATORVASTATIN CALCIUM 20 MG TABLET PO SCH (19:54)
[2017-12-23 20:14] LABS: GLUCOMETER DEV NAME(LOC) 6N 1E; GLUCOSE,POINT OF CARE 222 MG/DL (70-110)
[2017-12-23 23:13] VITALS: BP 118/74
[2017-12-24 03:14] VITALS: BP 139/86
[2017-12-24 06:05] LABS: GLUCOMETER DEV NAME(LOC) 6N 1E; GLUCOSE,POINT OF CARE 152 MG/DL (70-110)
[2017-12-24 07:55] VITALS: BP 124/69
[2017-12-24] MEDS: HEPARIN SODIUM,PORCINE 5,000 UNITS/ML VIAL SQ SCH ×3 (09:00→20:28)
[2017-12-24] MEDS: DOCUSATE SODIUM 100 MG CAPSULE PO SCH ×2 (09:04→20:27)
[2017-12-24] MEDS: ASPIRIN 81 MG CHEWABLE TABLET PO SCH (09:04)
[2017-12-24] MEDS: PANTOPRAZOLE SODIUM 40 MG DR TABLET PO SCH (09:04)
[2017-12-24] MEDS: BETHANECHOL CHLORIDE 25 MG TABLET PO SCH ×3 (09:04→20:27)
[2017-12-24] MEDS: MULTIVITAMINS WITH MINERALS, THERAPEUTIC TABLET PO SCH (09:04)
[2017-12-24] MEDS: TAMSULOSIN HCL 0.4 MG CAPSULE PO SCH ×2 (09:04→20:27)
[2017-12-24] MEDS: LISINOPRIL 5 MG TABLET PO SCH (09:04)
[2017-12-24 11:17] VITALS: BP 119/80
[2017-12-24] MEDS: INSULIN LISPRO 100 UNITS/ML SQ PRN ×2 (11:52→20:47)
[2017-12-24 12:25] LABS: GLUCOMETER DEV NAME(LOC) 6N 1E; GLUCOSE,POINT OF CARE 142 MG/DL (70-110)
[2017-12-24] MEDS ORDERED: RINGERS SOLUTION,LACTATED 1,000 ML IV ONE ×3 (13:18→13:30)
[2017-12-24 13:24] LABS: GLUCOMETER DEV NAME(LOC) SDS 5; GLUCOSE,POINT OF CARE 105 MG/DL (70-110)
[2017-12-24] MEDS ORDERED: SORBITOL IRRIGATION 3,000 ML IRRIG ONE (13:33)
[2017-12-24] MEDS ORDERED: TAMSULOSIN HCL 0.4 MG CAPSULE PO ONE (14:45)
[2017-12-24] MEDS ORDERED: FentaNYL CITRATE-PF 100 MCG/2 ML VIAL IVP PRN (15:30)
[2017-12-24] MEDS ORDERED: BETHANECHOL CHLORIDE 25 MG TABLET PO SCH (16:00)
[2017-12-24 16:42] VITALS: BP 122/72
[2017-12-24 19:14] VITALS: BP 134/84
[2017-12-24 19:17] LABS: BASOPHILS % (AUTO) 0.6 % (0.0-2.0); EOSINOPHILS % (AUTO) 5.4 % (1.0-6.0); HEMATOCRIT 35.1 % (41-53); LYMPHOCYTES # (AUTO) 2.2 K/uL (1.0-4.8); LYMPHOCYTES % (AUTO) 19.2 % (22.0-44.0); MEAN CORPUSCULAR HEMOGLOBIN 31.3 pg (26.0-34.0); MEAN CORPUSCULAR HGB CONC 34.1 G/dL (31.0-37.0); MEAN CORPUSCULAR VOLUME 92 fL (80-100); MONOCYTES # (AUTO) 0.8 K/uL (0.1-1.0); MONOCYTES % (AUTO) 6.8 % (2.0-9.0); NEUTROPHILS # (AUTO) 7.7 K/uL (1.8-7.7); PLATELET COUNT (AUTO) 378 K/uL (150-450); RED BLOOD CELL COUNT(AUTO) 3.82 MIL/uL (4.50-5.90); RED CELL DISTRIBUTION WIDTH 13.7 % (11.5-14.5)
[2017-12-24 19:29] LABS: ANION GAP 7 mmol/L (8-16); CALCIUM, TOTAL 8.7 mg/dL (8.8-10.5); CARBON DIOXIDE 26 mmol/L (22-29); CHLORIDE 103 mmol/L (98-107); CREATININE 1.01 mg/dL (0.60-1.30); GLOMERULAR FILTR. RATE CALC > 60 mL/min (>60); GLUCOSE,RANDOM 235 mg/dL (70-110); POTASSIUM 3.7 mmol/L (3.5-5.1); SODIUM SERUM 136 mmol/L (136-145); UREA NITROGEN, BLOOD 11 mg/dL (7-18)
[2017-12-24 19:35] LABS: ALANINE AMINOTRANSFERASE 21 U/L (12-78); ALBUMIN 2.6 g/dL (3.4-5.0); ALKALINE PHOSPHATASE 91 U/L (46-116); ASPARTATE AMINOTRANSFERASE 17 U/L (15-37); BILIRUBIN,TOTAL 0.3 mg/dL (0.1-1.0); TOTAL PROTEIN, SERUM 7.1 g/dL (6.4-8.2)
[2017-12-24] MEDS: ATORVASTATIN CALCIUM 20 MG TABLET PO SCH (20:27)
[2017-12-24] MEDS: RisperiDONE 0.5 MG TABLET PO SCH (20:27)
[2017-12-24 23:35] VITALS: BP 110/67
[2017-12-25 05:14] VITALS: BP 139/78
[2017-12-25] MEDS ORDERED: FentaNYL CITRATE-PF 100 MCG/2 ML VIAL IVP ONE (05:41)
[2017-12-25] MEDS ORDERED: MIDAZOLAM HCL 2 MG/2 ML VIAL IVP ONE (05:41)
[2017-12-25 05:55] LABS: EOSINOPHILS % (AUTO) 7.4 % (1.0-6.0); HEMATOCRIT 38.6 % (41-53); LYMPHOCYTES # (AUTO) 2.6 K/uL (1.0-4.8); LYMPHOCYTES % (AUTO) 20.1 % (22.0-44.0); MEAN CORPUSCULAR HEMOGLOBIN 31.5 pg (26.0-34.0); MEAN CORPUSCULAR HGB CONC 33.6 G/dL (31.0-37.0); MEAN CORPUSCULAR VOLUME 94 fL (80-100); MONOCYTES % (AUTO) 7.7 % (2.0-9.0); NEUTROPHILS # (AUTO) 8.3 K/uL (1.8-7.7); NEUTROPHILS % (AUTO) 63.8 % (40.0-70.0); PLATELET COUNT (AUTO) 379 K/uL (150-450); RED BLOOD CELL COUNT(AUTO) 4.11 MIL/uL (4.50-5.90); RED CELL DISTRIBUTION WIDTH 13.8 % (11.5-14.5)
[2017-12-25 06:16] LABS: ALANINE AMINOTRANSFERASE 20 U/L (12-78); ALBUMIN 2.8 g/dL (3.4-5.0); ALKALINE PHOSPHATASE 100 U/L (46-116); ANION GAP 10 mmol/L (8-16); ASPARTATE AMINOTRANSFERASE 20 U/L (15-37); BILIRUBIN,TOTAL 0.3 mg/dL (0.1-1.0); CALCIUM, TOTAL 9.3 mg/dL (8.8-10.5); CARBON DIOXIDE 25 mmol/L (22-29); CHLORIDE 102 mmol/L (98-107); CREATININE 0.84 mg/dL (0.60-1.30); GLOMERULAR FILTR. RATE CALC > 60 mL/min (>60); GLUCOSE,RANDOM 131 mg/dL (70-110); POTASSIUM 4.3 mmol/L (3.5-5.1); SODIUM SERUM 137 mmol/L (136-145); TOTAL PROTEIN, SERUM 7.7 g/dL (6.4-8.2); UREA NITROGEN, BLOOD 12 mg/dL (7-18)
[2017-12-25 07:22] VITALS: BP 129/87
[2017-12-25] MEDS: PANTOPRAZOLE SODIUM 40 MG DR TABLET PO SCH (08:53)
[2017-12-25] MEDS: HEPARIN SODIUM,PORCINE 5,000 UNITS/ML VIAL SQ SCH ×2 (08:53→20:55)
[2017-12-25] MEDS: DOCUSATE SODIUM 100 MG CAPSULE PO SCH ×2 (08:53→20:54)
[2017-12-25] MEDS: ASPIRIN 81 MG CHEWABLE TABLET PO SCH (08:53)
[2017-12-25] MEDS: MULTIVITAMINS WITH MINERALS, THERAPEUTIC TABLET PO SCH (08:53)
[2017-12-25] MEDS: TAMSULOSIN HCL 0.4 MG CAPSULE PO SCH ×2 (08:53→20:54)
[2017-12-25] MEDS: BETHANECHOL CHLORIDE 25 MG TABLET PO SCH ×3 (08:54→20:54)
[2017-12-25] MEDS: LISINOPRIL 5 MG TABLET PO SCH (08:54)
[2017-12-25 11:17] VITALS: BP 143/84
[2017-12-25] MEDS: INSULIN LISPRO 100 UNITS/ML SQ PRN ×3 (12:06→21:04)
[2017-12-25 15:52] VITALS: BP 130/74
[2017-12-25 17:20] LABS: GLUCOMETER DEV NAME(LOC) 6N 1E; GLUCOSE,POINT OF CARE 175 MG/DL (70-110)
[2017-12-25 19:37] VITALS: BP 140/75
[2017-12-25] MEDS: ATORVASTATIN CALCIUM 20 MG TABLET PO SCH (20:54)
[2017-12-25] MEDS: RisperiDONE 0.5 MG TABLET PO SCH (20:54)
[2017-12-25 21:19] LABS: GLUCOMETER DEV NAME(LOC) 6N 2D; GLUCOSE,POINT OF CARE 128 MG/DL (70-110)
[2017-12-25 21:19] LABS: GLUCOMETER DEV NAME(LOC) 6N 2D; GLUCOSE,POINT OF CARE 290 MG/DL (70-110)
[2017-12-25 21:19] LABS: GLUCOMETER DEV NAME(LOC) 6N 2D; GLUCOSE,POINT OF CARE 128 MG/DL (70-110)
[2017-12-25 21:20] LABS: GLUCOMETER DEV NAME(LOC) 6N 2D; GLUCOSE,POINT OF CARE 227 MG/DL (70-110)
[2017-12-25 21:20] LABS: GLUCOMETER DEV NAME(LOC) 6N 2D; GLUCOSE,POINT OF CARE 270 MG/DL (70-110)
[2017-12-25 23:35] VITALS: BP 135/72
[2017-12-26 04:45] VITALS: BP 143/92
[2017-12-26] MEDS: INSULIN LISPRO 100 UNITS/ML SQ PRN ×4 (05:54→21:23)
[2017-12-26 07:03] LABS: BASOPHILS % (AUTO) 1.3 % (0.0-2.0); EOSINOPHILS % (AUTO) 6.8 % (1.0-6.0); HEMATOCRIT 39.3 % (41-53); HEMOGLOBIN 13.1 g/dL (13.5-17.5); LYMPHOCYTES # (AUTO) 3.3 K/uL (1.0-4.8); MEAN CORPUSCULAR HEMOGLOBIN 31.3 pg (26.0-34.0); MEAN CORPUSCULAR HGB CONC 33.5 G/dL (31.0-37.0); MEAN CORPUSCULAR VOLUME 94 fL (80-100); MONOCYTES % (AUTO) 8.3 % (2.0-9.0); NEUTROPHILS # (AUTO) 6.8 K/uL (1.8-7.7); NEUTROPHILS % (AUTO) 56.6 % (40.0-70.0); PLATELET COUNT (AUTO) 445 K/uL (150-450); RED CELL DISTRIBUTION WIDTH 13.5 % (11.5-14.5)
[2017-12-26 07:04] LABS: GLUCOMETER DEV NAME(LOC) 6N 2D; GLUCOSE,POINT OF CARE 141 MG/DL (70-110)
[2017-12-26 07:15] LABS: ALANINE AMINOTRANSFERASE 20 U/L (12-78); ALBUMIN 2.9 g/dL (3.4-5.0); ALKALINE PHOSPHATASE 102 U/L (46-116); ANION GAP 9 mmol/L (8-16); ASPARTATE AMINOTRANSFERASE 15 U/L (15-37); BILIRUBIN,TOTAL 0.4 mg/dL (0.1-1.0); CALCIUM, TOTAL 9.3 mg/dL (8.8-10.5); CARBON DIOXIDE 27 mmol/L (22-29); CHLORIDE 101 mmol/L (98-107); CREATININE 0.82 mg/dL (0.60-1.30); GLOMERULAR FILTR. RATE CALC > 60 mL/min (>60); GLUCOSE,RANDOM 153 mg/dL (70-110); POTASSIUM 4.1 mmol/L (3.5-5.1); SODIUM SERUM 137 mmol/L (136-145); UREA NITROGEN, BLOOD 11 mg/dL (7-18)
[2017-12-26 07:45] VITALS: BP 109/69
[2017-12-26] MEDS: HEPARIN SODIUM,PORCINE 5,000 UNITS/ML VIAL SQ SCH ×2 (08:11→21:02)
[2017-12-26] MEDS: DOCUSATE SODIUM 100 MG CAPSULE PO SCH ×2 (08:11→21:01)
[2017-12-26] MEDS: MULTIVITAMINS WITH MINERALS, THERAPEUTIC TABLET PO SCH (08:11)
[2017-12-26] MEDS: PANTOPRAZOLE SODIUM 40 MG DR TABLET PO SCH (08:11)
[2017-12-26] MEDS: TAMSULOSIN HCL 0.4 MG CAPSULE PO SCH ×2 (08:12→21:01)
[2017-12-26] MEDS: ASPIRIN 81 MG CHEWABLE TABLET PO SCH (08:12)
[2017-12-26] MEDS: BETHANECHOL CHLORIDE 25 MG TABLET PO SCH ×3 (08:12→21:02)
[2017-12-26] MEDS: LISINOPRIL 5 MG TABLET PO SCH ×2 (08:12→08:14)
[2017-12-26 14:19] LABS: GLUCOMETER DEV NAME(LOC) 6N 1E; GLUCOSE,POINT OF CARE 183 MG/DL (70-110)
[2017-12-26 15:48] VITALS: BP 138/70
[2017-12-26 19:35] VITALS: BP 131/68
[2017-12-26 20:04] LABS: GLUCOMETER DEV NAME(LOC) 6N 2D; GLUCOSE,POINT OF CARE 234 MG/DL (70-110)
[2017-12-26] MEDS: ATORVASTATIN CALCIUM 20 MG TABLET PO SCH (21:01)
[2017-12-26] MEDS: RisperiDONE 0.5 MG TABLET PO SCH (21:02)
[2017-12-26 23:30] VITALS: BP 136/72
[2017-12-27 00:35] LABS: GLUCOMETER DEV NAME(LOC) 6N 1E; GLUCOSE,POINT OF CARE 157 MG/DL (70-110)
[2017-12-27 03:30] VITALS: BP 128/74
[2017-12-27] MEDS: INSULIN LISPRO 100 UNITS/ML SQ PRN ×2 (06:29→12:20)
[2017-12-27 06:39] LABS: HEMATOCRIT 37.1 % (41-53); HEMOGLOBIN 12.8 g/dL (13.5-17.5); LYMPHOCYTES # (AUTO) 2.7 K/uL (1.0-4.8); LYMPHOCYTES % (AUTO) 26.6 % (22.0-44.0); MEAN CORPUSCULAR HEMOGLOBIN 31.6 pg (26.0-34.0); MEAN CORPUSCULAR HGB CONC 34.5 G/dL (31.0-37.0); MEAN CORPUSCULAR VOLUME 92 fL (80-100); MONOCYTES # (AUTO) 0.8 K/uL (0.1-1.0); MONOCYTES % (AUTO) 7.9 % (2.0-9.0); NEUTROPHILS # (AUTO) 5.8 K/uL (1.8-7.7); NEUTROPHILS % (AUTO) 57.5 % (40.0-70.0); PLATELET COUNT (AUTO) 438 K/uL (150-450); RED BLOOD CELL COUNT(AUTO) 4.05 MIL/uL (4.50-5.90); RED CELL DISTRIBUTION WIDTH 13.7 % (11.5-14.5)
[2017-12-27 06:58] LABS: ALANINE AMINOTRANSFERASE 19 U/L (12-78); ALBUMIN 2.8 g/dL (3.4-5.0); ALKALINE PHOSPHATASE 98 U/L (46-116); ANION GAP 8 mmol/L (8-16); ASPARTATE AMINOTRANSFERASE 16 U/L (15-37); BILIRUBIN,TOTAL 0.3 mg/dL (0.1-1.0); CALCIUM, TOTAL 9.4 mg/dL (8.8-10.5); CARBON DIOXIDE 28 mmol/L (22-29); CHLORIDE 102 mmol/L (98-107); CREATININE 0.85 mg/dL (0.60-1.30); GLOMERULAR FILTR. RATE CALC > 60 mL/min (>60); GLUCOSE,RANDOM 135 mg/dL (70-110); SODIUM SERUM 138 mmol/L (136-145); TOTAL PROTEIN, SERUM 7.8 g/dL (6.4-8.2); UREA NITROGEN, BLOOD 14 mg/dL (7-18)
[2017-12-27 07:49] LABS: GLUCOMETER DEV NAME(LOC) 6N 1E; GLUCOSE,POINT OF CARE 145 MG/DL (70-110)
[2017-12-27 08:12] VITALS: BP 108/73
[2017-12-27] MEDS: TAMSULOSIN HCL 0.4 MG CAPSULE PO SCH (08:33)
[2017-12-27] MEDS: DOCUSATE SODIUM 100 MG CAPSULE PO SCH (08:33)
[2017-12-27] MEDS: MULTIVITAMINS WITH MINERALS, THERAPEUTIC TABLET PO SCH (08:33)
[2017-12-27] MEDS: BETHANECHOL CHLORIDE 25 MG TABLET PO SCH (08:33)
[2017-12-27] MEDS: LISINOPRIL 5 MG TABLET PO SCH (08:33)
[2017-12-27] MEDS: HEPARIN SODIUM,PORCINE 5,000 UNITS/ML VIAL SQ SCH (08:33)
[2017-12-27] MEDS: PANTOPRAZOLE SODIUM 40 MG DR TABLET PO SCH (08:34)
[2017-12-27] MEDS: ASPIRIN 81 MG CHEWABLE TABLET PO SCH (08:34)
[2017-12-27 12:14] LABS: GLUCOMETER DEV NAME(LOC) 6N 2D; GLUCOSE,POINT OF CARE 163 MG/DL (70-110)
[2017-12-27 13:42] VITALS: BP 115/72
== END 2017-12-27 14:30 | DRG 57 ==
LOC: EMS 15:47 → 4E 23:30 → 6N 12-16 17:50
PROVIDERS: ADMIT Internal Medicine; ATTEND Internal Medicine
PROC: 0TJB8ZZ Inspection of Bladder, Via Natural or Artificial Opening Endoscopic (ICD-10-PCS; principal; 2017-12-24 13:00)
DX: G91.0 Communicating hydrocephalus (principal); N30.91 Cystitis, unspecified with hematuria; R13.10 Dysphagia, unspecified; E11.319 Type 2 diabetes mellitus with unspecified diabetic retinopathy without macular edema; E11.40 Type 2 diabetes mellitus with diabetic neuropathy, unspecified; E11.65 Type 2 diabetes mellitus with hyperglycemia; E78.00 Pure hypercholesterolemia, unspecified; E78.5 Hyperlipidemia, unspecified; F17.210 Nicotine dependence, cigarettes, uncomplicated; H40.9 Unspecified glaucoma; I10 Essential (primary) hypertension; N31.9 Neuromuscular dysfunction of bladder, unspecified; N32.89 Other specified disorders of bladder; N47.2 Paraphimosis; F10.10 Alcohol abuse, uncomplicated; R33.9 Retention of urine, unspecified; F15.90 Other stimulant use, unspecified, uncomplicated; F12.90 Cannabis use, unspecified, uncomplicated; H26.9 Unspecified cataract; J44.9 Chronic obstructive pulmonary disease, unspecified; K21.9 Gastro-esophageal reflux disease without esophagitis; R62.7 Adult failure to thrive; Z59.0 Homelessness; Z79.4 Long term (current) use of insulin; Z79.82 Long term (current) use of aspirin; Z83.3 Family history of diabetes mellitus; Z79.899 Other long term (current) drug therapy; Z94.7 Corneal transplant status; Z71.6 Tobacco abuse counseling
CPT/HCPCS: 51702; 70450; 70551; 74178; 87081; 87086; 92526; 92610; 93005; 97116; 97163; 97167; 97530; 97535; 99285; J0696; J1644; J2250; J3010; J7030; J7050; J7060; J7120

== ENCOUNTER 2018-04-29 16:03 | Emergency (ER) | payer MEDICARE, MEDICAID ==
[~2018-04-29] VITALS: Ht 165.1 cm; Wt 91.0 kg
[2018-04-29] MEDS ORDERED: TAMS0.4C32 PO (17:20)
[2018-04-29] MEDS ORDERED: PANT40TA25 PO (17:20)
[2018-04-29] MEDS ORDERED: BETH25 PO (17:20)
[2018-04-29] MEDS ORDERED: ATOR20TA86 PO (17:20)
[2018-04-29] MEDS ORDERED: ASPI81 PO (17:20)
[2018-04-29] MEDS ORDERED: LISI-660 PO (17:24)
[2018-04-29] MEDS ORDERED: RISP.5 PO (17:24)
[2018-04-29 17:49] LABS: BASOPHILS % (AUTO) 0.7 % (0.0-2.0); EOSINOPHILS % (AUTO) 3.9 % (1.0-6.0); HEMATOCRIT 34.8 % (41-53); HEMOGLOBIN 11.6 g/dL (13.5-17.5); LYMPHOCYTES # (AUTO) 2.3 K/uL (1.0-4.8); LYMPHOCYTES % (AUTO) 24.4 % (22.0-44.0); MEAN CORPUSCULAR HGB CONC 33.2 G/dL (31.0-37.0); MEAN CORPUSCULAR VOLUME 87 fL (80-100); MONOCYTES # (AUTO) 0.8 K/uL (0.1-1.0); MONOCYTES % (AUTO) 8.5 % (2.0-9.0); NEUTROPHILS % (AUTO) 62.5 % (40.0-70.0); PLATELET COUNT (AUTO) 356 K/uL (150-450); RED BLOOD CELL COUNT(AUTO) 3.98 MIL/uL (4.50-5.90); RED CELL DISTRIBUTION WIDTH 14.4 % (11.5-14.5)
[2018-04-29 18:06] LABS: ANION GAP 9 mmol/L (8-16); CALCIUM, TOTAL 9.2 mg/dL (8.8-10.5); CARBON DIOXIDE 27 mmol/L (22-29); CHLORIDE 99 mmol/L (98-107); CREATININE 0.83 mg/dL (0.60-1.30); GLOMERULAR FILTR. RATE CALC > 60 mL/min (>60); GLUCOSE,RANDOM 184 mg/dL (70-110); POTASSIUM 4.4 mmol/L (3.5-5.1); SODIUM SERUM 135 mmol/L (136-145); UREA NITROGEN, BLOOD 26 mg/dL (7-18)
[2018-04-29 18:12] LABS: ALANINE AMINOTRANSFERASE 59 U/L (12-78); ALBUMIN 3.4 g/dL (3.4-5.0); ALKALINE PHOSPHATASE 103 U/L (46-116); ASPARTATE AMINOTRANSFERASE 27 U/L (15-37); BILIRUBIN,TOTAL 0.2 mg/dL (0.1-1.0); TOTAL PROTEIN, SERUM 7.7 g/dL (6.4-8.2)
[2018-04-29] MEDS ORDERED: LORazepam 2 MG TABLET PO ONE (18:15)
[2018-04-29 19:10] VITALS: BP 118/62
== END 2018-04-29 19:28 | disposition home or self-care (01) ==
LOC: EMS 16:05
DX: F69 Unspecified disorder of adult personality and behavior (principal); E11.65 Type 2 diabetes mellitus with hyperglycemia; E78.00 Pure hypercholesterolemia, unspecified; I10 Essential (primary) hypertension; F17.210 Nicotine dependence, cigarettes, uncomplicated; F12.90 Cannabis use, unspecified, uncomplicated; F15.90 Other stimulant use, unspecified, uncomplicated; Z79.82 Long term (current) use of aspirin; Z79.899 Other long term (current) drug therapy
CPT/HCPCS: 36415; 80053; 85025; 99285; 99406; G0480